=== PATIENT | male | born 1935 | race Caucasian/White ===

== ENCOUNTER → 2017-07-29 | Outpatient (CLI) | payer OTHER | LOC: BRMIMAGING 11:53 | PROVIDERS: ATTEND Family Medicine | DX: M25.571 Pain in right ankle and joints of right foot (principal); R22.9 Localized swelling, mass and lump, unspecified | CPT/HCPCS: 73600-PO ==

== ENCOUNTER 2018-12-26 18:30 | Inpatient (IN) | payer OTHER ==
[2018-12-26] MEDS ORDERED: NS 1,000 ML IV ONE (18:45)
--- NOTE | 2018-12-26 18:51 | EDPHY ---
H & P Stated Complaint: hematuria Time Seen by Provider: 12/26/18 18:36 HPI/ROS: CHIEF COMPLAINT: Hematuria HISTORY OF PRESENT ILLNESS: The patient is an 83-year-old man with a history of BPH status post green light procedure in 2013 who developed hematuria a few days ago and bladder retention yesterday. Yesterday he presented to his primary sent him to [facility] where had a Hargorve catheter placed and irrigated. Today he followed up with his urologist Dr. Shaw. Dr. Shaw exchanged the catheter for 3 way and irrigated his bladder and sent him here for CT scan. The CT scan revealed a large clot still remaining in the patient' s bladder. Dr. Shaw advised the patient come here to the ER to be admitted for continuous bladder irrigation. He has not had a fever. He has no abdominal pain. No vomiting. Severity: Moderate Modifying factors: None REVIEW OF SYSTEMS: Constitutional: denies: chills, fever, recent illness, recent injury EENTM: denies: blurred vision, double vision, nose congestion Respiratory: denies: cough, shortness of breath Cardiac: denies: chest pain, irregular heart rate, lightheadedness, palpitations Gastrointestinal/Abdominal: denies: abdominal pain, diarrhea, nausea, vomiting, blood streaked stools Genitourinary: See HPI Musculoskeletal: denies: joint pain, muscle pain Skin: denies: lesions, rash, jaundice, bruising Neurological: denies: headache, numbness, paresthesia, tingling, dizziness, weakness Hematologic/Lymphatic: denies: blood clots, easy bleeding, easy bruising Immunologic/allergic: denies: HIV/AIDS, transplant 10 systems reviewed and negative except as noted EXAM: GENERAL: Well-appearing, well-nourished and in no acute distress. HEAD: Atraumatic, normocephalic. EYES: Pupils equal round and reactive to light, extraocular movements intact, sclera anicteric, conjunctiva are normal. ENT: TMs normal, nares patent, oropharynx clear without exudates. Moist mucous membranes. NECK: Normal range of motion, supple without lymphadenopathy or JVD. LUNGS: Breath sounds clear to auscultation bilaterally and equal. No wheezes rales or rhonchi. HEART: Regular rate and rhythm without murmurs, rubs or gallops. ABDOMEN: Soft, nontender, normoactive bowel sounds. No guarding, no rebound. No masses appreciated. Hargrove catheter in place, 3 way BACK: No CVA tenderness, no spinal tenderness, step-offs or deformities EXTREMITIES: Normal range of motion, no pitting or edema. No clubbing or cyanosis. NEUROLOGICAL: Cranial nerves II through XII grossly intact. Normal speech, normal gait. 5/5 strength, normal movement in all extremities, normal sensation , normal reflexes PSYCH: Normal mood, normal affect. SKIN: Warm, dry, normal turgor, no visible rashes or lesions. Source: Patient Exam Limitations: No limitations - Personal History Current Tetanus/Diphtheria Vaccine: Yes - Medical/Surgical History Hx Asthma: No Hx Chronic Respiratory Disease: No Hx Diabetes: Yes Hx Cardiac Disease: No Hx Renal Disease: No Hx Cirrhosis: No Hx Alcoholism: No Other PMH: Pre-diabetic. BPH status post green light - Family History Significant Family History: No pertinent family hx - Social History Smoking Status: Never smoked Alcohol Use: None Constitutional: Initial Vital Signs Temperature (C) 36.5 C 12/26/18 18:35 Heart Rate 66 12/26/18 18:35 Respiratory Rate 18 12/26/18 18:35 Blood Pressure 139/76 H 12/26/18 18:35 O2 Sat (%) 95 12/26/18 18:35 O2 Delivery Mode Room Air Allergies/Adverse Reactions: No Known Allergies Allergy (Unverified 12/26/18 18:38) Home Medications: Medication Instructions Recorded Atorvastatin Calcium [Lipitor 20 20 mg PO HS 12/26/18 mg (*)] Lisinopril [Lisinopril] 10 mg PO HS 12/26/18 metFORMIN HCL [Metformin HCl] 250 mg PO HS 12/26/18 Medical Decision Making - Diagnostics Imaging Results: Imaging Impressions Pelvis CT 12/26/18 17:05 Impression: 1. Hargrove catheter in bladder with acute hemorrhage within the bladder measuring 7 x 4 x 5 cm. 2. Prostatomegaly. 3. Sigmoid diverticulosis without diverticulitis. Findings and recommendations given to Sonny Camara MD at 18:20 hour, 2018. Final report concurs with initial preliminary interpretation. Cosign: Dr. Aamir Nunez. Imaging: I viewed and interpreted images myself ED Course/Re-evaluation: I discussed the case with Dr. Cardoso from Internal Medicine who will admit for continuous bladder irrigation. Patient understands and agrees with this plan. Differential Diagnosis: Partial list of the Differential diagnosis considered include but were not limited to; hematuria, urinary retention and although unlikely based on the history and physical exam, I also considered infection, trauma. - Data Points Medications Given: Acetaminophen (Tylenol) 650 mg PO Q4HRS PRN PRN Reason: Pain, Mild/Fever, Can Take PO Stop: 06/24/19 19:31 Last Admin: 12/26/18 21:37 Dose: 650 mg Atorvastatin Calcium (Lipitor) 20 mg PO HS JESU Stop: 06/24/19 20:59 Last Admin: 12/26/18 21:37 Dose: 20 mg Sodium Chloride (Ns) 1,000 mls @ 100 mls/hr IV CONT JESU Stop: 12/29/18 05:44 Last Admin: 12/26/18 21:37 Dose: 1,000 mls Discontinued Medications Sodium Chloride (Ns) 1,000 mls @ 0 mls/hr IV EDNOW ONE; Wide Open PRN Reason: Protocol Stop: 12/26/18 18:46 Last Admin: 12/26/18 18:59 Dose: 1,000 mls Departure - Departure [facility] Acute Clinical Impression: Acute retention of urine Hematuria Qualifiers: Hematuria type: gross Qualified Code(s): R31.0 - Gross hematuria Condition: Fair
[2018-12-26 19:09] LABS: PLATELET COUNT 251 10^3/uL (150-400)
[2018-12-26 19:18] LABS: INR 0.97 (0.83-1.16); PROTIME(PATIENT) 13.1 SEC (12.0-15.0)
[2018-12-26] MEDS ORDERED: ONDANSETRON DISINTEGRATING 4 MG TAB PO PRN (19:32)
[2018-12-26] MEDS ORDERED: ONDANSETRON 4 MG/2 ML VIAL IVP PRN (19:32)
--- NOTE | 2018-12-26 19:41 | PDGENHP ---
History and Physical - Chief Complaint Hematuria - History of Present Illness HPI: This is a pleasant 83 y/o male with history of BPH s/p Green Light procedure performed in 2013 who developed hematuria few short days ago. Yesterday he had bladder retention. He was sent by his PCP to [facility] where a Addison catheter was placed and irrigated. Today he followed up with Dr. Camara and Dr. Camara exchanged his catheter for a 3-way catheter, irrigated it , and then sent him to CT scan. The scan revealed a large clot remains in the pt's bladder. The pt was advised to come to the ER for continuous bladder irrigation. Denies chest pain, palpitations, nausea, vomiting, fevers, chills, lightheadedness. He is being admitted for observation and treatment. Past Medical History: Pre-DM, HTN, HLD, BPH s/p green light procedure Past Surgical History: Ortho sx involving hands and shoulders Social: , lives in [place]. Denies tobacco or illicit drug use. Drinks ~2 alcohol beverages/day. History Information - Allergies/Home Medication List Allergies/Adverse Reactions: No Known Allergies Allergy (Unverified 12/26/18 18:38) Home Medications: Atorvastatin Calcium [Lipitor 20 mg (*)] 20 mg PO HS 12/26/18 [Last Taken ] Lisinopril [Lisinopril] 10 mg PO HS 12/26/18 [Last Taken 12/25/18] metFORMIN HCL [Metformin HCl] 250 mg PO HS 12/26/18 [Last Taken 12/25/18] I have personally reviewed and updated: family history, medical history, social history, surgical history Past Medical History: See HPI list - Surgical History Additional surgical history: See HPI list - Family History Positive for: non-pertinent - Social History Smoking Status: Never smoked Alcohol Use: Rarely Drug Use: None Review of Systems Review of Systems: ROS: 10pt was reviewed & negative except for what was stated in HPI & below Constitutional: Reports: no symptoms EENMT: Reports: no symptoms Cardiac: Reports: no symptoms Respiratory: Reports: no symptoms Gastrointestinal: Reports: no symptoms Genitourinary: Reports: hematuria Muscolosketal: Reports: no symptoms Skin: Reports: no symptoms Neurological: Reports: no symptoms Hematologic/Lymphatic: Reports: no symptoms Immunologic/Allergy: Reports: no symptoms Physical Exam Physical Exam: Lab data and imaging were reviewed. Case discussed with admitting physician, Dr. Aj Cardoso. Temp Pulse Resp BP Pulse Ox 36.5 C 66 18 139/76 H 95 12/26/18 18:35 12/26/18 18:35 12/26/18 18:35 12/26/18 18:35 12/26/18 18:35 Constitutional: no apparent distress, appears nourished, not in pain Eyes: PERRL, anicteric sclera, EOMI Ears, Nose, Mouth, Throat: moist mucous membranes, hearing normal, ears appear normal, no oral mucosal ulcers Cardiovascular: regular rate and rhythym, no murmur, rub, or gallop, No edema Peripheral Pulses: 2+: dorsalis-pedis (R) (Radial 2+), dorsalis-pedis (L) ( Radial 2+) Respiratory: no respiratory distress, no rales or rhonchi, clear to auscultation Gastrointestinal: normoactive bowel sounds, soft, non-tender abdomen, no palpable masses Genitourinary: addison in urethra (Hematuria in addison bag) Skin: warm, normal color, no rashes or abrasions, no fluctuance, no induration, No mottled Musculoskeletal: full muscle strength, no muscle tenderness, normal joint ROM, no joint effusions Neurologic: AAOx3, sensation intact bilaterally, CN II-XII Intact Psychiatric: interacting appropriately, not anxious, not encephalopathic, thought process linear Lymph, Heme, Immunologic: no cervical LAD, no supraclavicular LAD Lab Data & Imaging Review 12/26/18 19:00 12/26/18 19:00 WBC 9.00 10^3/uL (3.80-9.50) 12/26/18 19:00 RBC 4.10 10^6/uL (4.40-6.38) L 12/26/18 19:00 Hgb 12.4 g/dL (13.7-17.5) L 12/26/18 19:00 Hct 36.2 % (40.0-51.0) L 12/26/18 19:00 MCV 88.3 fL (81.5-99.8) 12/26/18 19:00 MCH 30.2 pg (27.9-34.1) 12/26/18 19:00 MCHC 34.3 g/dL (32.4-36.7) 12/26/18 19:00 RDW 13.1 % (11.5-15.2) 12/26/18 19:00 Plt Count 251 10^3/uL (150-400) 12/26/18 19:00 MPV 9.3 fL (8.7-11.7) 12/26/18 19:00 Neut % (Auto) 74.8 % (39.3-74.2) H 12/26/18 19:00 Lymph % (Auto) 15.7 % (15.0-45.0) 12/26/18 19:00 [place] % (Auto) 7.4 % (4.5-13.0) 12/26/18 19:00 Eos % (Auto) 1.6 % (0.6-7.6) 12/26/18 19:00 Baso % (Auto) 0.2 % (0.3-1.7) L 12/26/18 19:00 Nucleat RBC Rel Count 0.0 % (0.0-0.2) 12/26/18 19:00 Absolute Neuts (auto) 6.73 10^3/uL (1.70-6.50) H 12/26/18 19:00 Absolute Lymphs (auto) 1.41 10^3/uL (1.00-3.00) 12/26/18 19:00 Absolute Monos (auto) 0.67 10^3/uL (0.30-0.80) 12/26/18 19:00 Absolute Eos (auto) 0.14 10^3/uL (0.03-0.40) 12/26/18 19:00 Absolute Basos (auto) 0.02 10^3/uL (0.02-0.10) 12/26/18 19:00 Absolute Nucleated RBC 0.00 10^3/uL (0-0.01) 12/26/18 19:00 Immature Gran % 0.3 % (0.0-1.1) 12/26/18 19:00 Immature Gran # 0.03 10^3/uL (0.00-0.10) 12/26/18 19:00 PT 13.1 SEC (12.0-15.0) 12/26/18 19:00 INR 0.97 (0.83-1.16) 12/26/18 19:00 APTT 29.4 SEC (23.0-38.0) 12/26/18 19:00 Sodium 128 mEq/L (135-145) L 12/26/18 19:00 Potassium 4.3 mEq/L (3.5-5.2) 12/26/18 19:00 Chloride 98 mEq/L (97-110) 12/26/18 19:00 Carbon Dioxide 22 mEq/l (22-31) 12/26/18 19:00 Anion Gap 8 mEq/L (6-14) 12/26/18 19:00 BUN 26 mg/dL (7-23) H 12/26/18 19:00 Creatinine 1.2 mg/dL (0.7-1.3) 12/26/18 19:00 Estimated GFR 58 12/26/18 19:00 Glucose 119 mg/dL (70-100) H 12/26/18 19:00 Calcium 9.2 mg/dL (8.5-10.4) 12/26/18 19:00 Assessment & Plan Plan: 83 y/o male with history of hypertension, hyperlipidemia and pre-diabetes presenting with hematuria and bladder retention. Yesterday he received a addison catheter and today that was exchanged with a 3-way catheter, irrigated and found on imaging to continue to have a substantial clot. He is being admitted for continuous irrigation of his bladder. #Bladder retention with symptomatic hematuria: Hemodynamically stable. -Consulted urology. Dr. Camara aware of his admittance to the hospital and requesting continuous irrigation of his bladder. #Hyponatremia (128) with mild elevated BUN/Cr (26/1.2) -Checking urine sodium and osmolality for possible but unlikely SIADH -IVF x 3 bags and will recheck CBC tomorrow morning; he is most likely mild hypovolemic #Mild anemia: H/H 12.4/36.2. Suspect hematuria leading cause. -Continue to monitor and will recheck CBC tomorrow morning. #HTN: stable. Continue home medication. Diet: Regular VTE ppx: SCDs Code: DNR Dispo: Admit to obs
[2018-12-26] MEDS: NS 1,000 ML IV SCH (21:37)
[2018-12-26] MEDS: ACETAMINOPHEN 325 MG TAB PO PRN (21:37)
[2018-12-26] MEDS: ATORVASTATIN CALCIUM 20 MG TAB PO SCH (21:37)
--- NOTE | 2018-12-27 01:29 | GHP ---
[f rep st] HISTORY AND PHYSICAL DATE OF ADMISSION: 12/26/2018 CHIEF COMPLAINT: Hematuria. HISTORY OF PRESENT ILLNESS: The patient is a pleasant 83-year-old gentleman with a past medical hist ory of BPH, status post GreenLight laser therapy performed in 2013, who developed hematuria a few day s ago and subsequent urine retention yesterday. He was seen at [facility] and had a Hargrove simin ter placed, and today had followup with his urologist. He subsequently had a three-way catheter plac ed and obtained a CT scan which revealed the presence of a large clot within the bladder and was then recommended to come to the emergency room for admission for continuous bladder irrigation. For past medical history, past surgical history, medications, allergies, family history, social histo ry, and review of systems, please refer to admission H and P, also dictated by Ayana Mari. PHYSICAL EXAM: VITAL SIGNS: Temperature 36.5, blood pressure 139/76, heart rate 66, respirations 18 , satting 95% on room air. GENERAL: Patient resting comfortably in bed. No acute distress. HEART: Regular rate and rhythm. LUNGS: Normal respiratory effort. ABDOMEN: Nondistended. : Hargrove ca theter in place with blood-tinged urine in his Hargrove bag. SKIN: No paleness to his skin noted. LABORATORY DATA: White blood cell count 9, hemoglobin 12, platelets 251. Sodium 128, potassium 4.3, chloride 98, bicarb 22, BUN is 26, creatinine 1.2, glucose of 119. ASSESSMENT AND PLAN: Hematuria, uncertain trigger to his bleeding but he does have a large clot note d within the bladder. Continue continuous bladder irrigation as recommended by Urology. Hold any as pirin, heparin or Lovenox. Hyponatremia, possibly hypovolemia in nature. Would not exclude the possibility of syndrome of inapp ropriate antidiuretic hormone secretion. Obtain urine sodium and urine osmolality. Intravenous flui ds overnight and reassess tomorrow morning. Hypertension. Continue current lisinopril. Hyperlipidemia. Continue atorvastatin. Impaired fasting glucose. Continue metformin at 250 mg nightly. Deep venous thrombosis prophylaxis, compression devices. No heparin or Lovenox in light of hematuria . DISPOSITION: Admit under observation status for now. /[id number]/MODL
[2018-12-27 05:00] LABS: PLATELET COUNT 223 10^3/uL (150-400)
[2018-12-27] MEDS: NS 1,000 ML IV SCH ×2 (05:36→22:38)
--- NOTE | 2018-12-27 07:53 | SOAPPROG ---
SOAP Progress Note Assessment/Plan: Assessment: Acute retention of urine Acute continue addison Hematuria Acute may need evacuation of clot Plan: 12/27/18 07:52 Objective: Vital Signs Temp Pulse Resp BP Pulse Ox 36.5 C 57 L 16 111/69 93 12/27/18 07:17 12/27/18 07:17 12/27/18 07:17 12/27/18 07:17 12/27/18 07:17 Laboratory Results 12/27/18 04:15 12/27/18 04:15 12/26/18 12/27/18 12/28/18 05:59 05:59 05:59 Intake Total 765 Output Total 900 Balance -135 PT 13.1 SEC (12.0-15.0) 12/26/18 19:00 INR 0.97 (0.83-1.16) 12/26/18 19:00 ICD10 Worksheet Patient Problems: Problems Problem Status Onset Acute retention of urine Acute Hematuria Acute
--- NOTE | 2018-12-27 08:26 | GCON ---
[f rep st] CONSULTATION REASON FOR CONSULTATION: Gross hematuria and urinary retention. The patient is an 83-year-old gentleman who 2 days ago had sudden onset of gross hematuria. He state s the day before he took a couple aspirin. He had no other inciting event. He has a long history of BPH. His primary urologist is Dr. Tony Álvarez. In 2013, he had a laser vaporization of the prostate. The patient is otherwise a fairly healthy gentleman. He has no known heart disease and denies any p rior issues with general anesthesia. He was seen at the [facility] yesterday due to clot retention. He had a Hargrove catheter placed. He was seen in the office yesterday with Dr. Henri rollins nd had multiple clots irrigated from his bladder followed by a CT scan, which confirmed that he still had a bladder full for multiple large blood clots. He is currently on constant bladder irrigation, which is darker red despite running fairly fast. He is in no apparent distress. He was asleep when I arrived. It is currently 11:23 p.m. He denies any fevers, chills. He otherwise feels fine. No c hest pain, shortness of breath. He had no UTI symptoms prior to the event. LABORATORY VALUES: Hematocrit of 36.2, hemoglobin 12.4, white count 9.0. Creatinine 1.2. Sodium is somewhat low at 128. PHYSICAL EXAMINATION: GENERAL: No apparent distress. Comfortable. HEART: Regular. ABDOMEN: Prabhakar ign. No flank tenderness. He is morbidly obese. : He has normal male genitalia, uncircumcised, normal testicles. No suprapubic tenderness. He is on constant bladder irrigation, fully secure. Laboratory values were reviewed. CT scan was reviewed and his office chart was reviewed. ASSESSMENT AND PLAN: Patient with significant onset of gross hematuria with known prostatomegaly. Tayler linares had a CT scan a couple of years ago which revealed a 7 cm long prostate. He also had a recent pelv ic CT scan which showed a very large prostate. A CT scan approximately 2 years ago revealed no renal disease. He is most likely having prostatic bleeding, although bladder pathology could not be ruled out. We had a long discussion. He would prefer to have intervention. Discussed cystoscopy, clot e vacuation with possible bladder tumor resection if found, also possible fulguration or transurethral resection of the prostate due to prostatic bleeding. We discussed the risk o damage to the ureters, risk of damage to the bladder or kidney, risk of incontinence, risk of bleeding, risk of infection, r isks of anesthesia which include heart attack, stroke, and . We discussed those risks and he wi shes to proceed. He will be made n.p.o. after midnight. /[id number]/MODL
--- NOTE | 2018-12-27 09:20 | PDANEPAE ---
ANE History of Present Illness CYSTOSCOPY, EVACUATION OF BLADDER HEMATOMA ANE Past Medical History - Cardiovascular History Hx Hypertension: Yes Hx Arrhythmias: No Hx Chest Pain: No Hx Coronary Artery / Peripheral Vascular Disease: No Hx CHF / Valvular Disease: No Hx Palpitations: No Cardiovascular History Comment: HPL, EKG with first degree AVB, LBBB - Pulmonary History Hx COPD: No Hx Asthma/Reactive Airway Disease: No Hx Recent Upper Respiratory Infection: No Hx Oxygen in Use at Home: No Hx Sleep Apnea: Yes Pulmonary History Comment: hx sleep apnea no CPAP. chronic cough for about 4 years, unclear etiology - Neurologic History Hx Cerebrovascular Accident: No Hx Seizures: No Hx Dementia: No Neurologic History Comment: none - Endocrine History Hx Diabetes: Yes Hypothyroid: No Hyperthyroid: No Obesity: mild - Renal History Hx Renal Disorders: Yes Renal History Comment: enlarged prostate, increased urination&urgency, s/p TURP about 5 years ago - Liver History Hx Hepatic Disorders: No - Neurological & Psychiatric Hx Hx Neurological and Psychiatric Disorders: No - Cancer History Hx Cancer: Yes Cancer History Comment: melanoma - Congenital Disorder History Hx Congenital Disorders: No - GI History GERD: mild Hx Gastrointestinal Disorders: Yes Gastrointestinal History Comment: heartburn. normal colonoscopy 2011 - Other Health History Other Health History: bilateral cataract surg. [facility]. with anemia on admission - Chronic Pain History Chronic Pain: No - Surgical History Prior Surgeries: R shoulder repair 1999. melanoma scalp removed 1999. R hand surg 1969. vasectomy 1971 ANE Review of Systems Review of Systems: - Exercise capacity METS (RN): 4 METS ANE Patient History - Allergies Allergies/Adverse Reactions: No Known Allergies Allergy (Unverified 12/26/18 18:38) - Home Medications Home Medications: Atorvastatin Calcium [Lipitor 20 mg (*)] 20 mg PO HS 12/26/18 [Last Taken ] Lisinopril [Lisinopril] 10 mg PO HS 12/26/18 [Last Taken 12/25/18] metFORMIN HCL [Metformin HCl] 250 mg PO HS 12/26/18 [Last Taken 12/25/18] - Anes Hx Anes Hx: no prior problems - Smoking Hx Smoking Status: Never smoked Marijuana use: No - Alcohol Use Alcohol Use: None - Family Anes Hx Family Anes Hx: none Family Hx Anesthesia Complications: no ANE Labs/Vital Signs - Labs Result Diagrams: 12/27/18 04:15 12/27/18 04:15 - Vital Signs Blood Pressure: 111/69 Heart Rate: 57 Respiratory Rate: 16 O2 Sat (%): 93 Height: 177.8 cm Weight: 90.718 kg ANE Physical Exam - Airway Neck exam: FROM Mallampati Score: Class 2 Mouth exam: normal dental/mouth exam (upper caps) - Pulmonary Pulmonary: clear to auscultation - Cardiovascular Cardiovascular: regular rate and rhythym - ASA Status ASA Status: III ANE Anesthesia Plan Anesthesia Plan: GA w LMA
[2018-12-27] MEDS ORDERED: PROPOFOL 200 MG/20 ML VIAL ONE ×2 (09:44→11:09)
[2018-12-27] MEDS ORDERED: fentaNYL 100 MCG/2 ML INJ ONE (09:44)
[2018-12-27] MEDS ORDERED: CEFAZOLIN 2 GM/DEXTROSE/100 ML BAG IV ONE (10:17)
[2018-12-27] MEDS ORDERED: LIDOCAINE 2% JELLY 20 ML (UROJECT) ONE (10:18)
[2018-12-27] MEDS ORDERED: IOPAMIDOL (ISOVUE-M 300) 15 ML VIAL ONE (10:26)
[2018-12-27] MEDS ORDERED: RANITIDINE 50 MG/2 ML VIAL ONE (10:38)
[2018-12-27] MEDS ORDERED: OPIUM/BELLADONNA ALKALO SUPP PR ONE (10:39)
[2018-12-27] MEDS ORDERED: ceFAZolin 2 GM/DEXTROSE 100 ML IV ONE (11:00)
[2018-12-27] MEDS ORDERED: PHENYLEPHRINE HCL 100 MCG/ML SYR ONE (11:03)
[2018-12-27] MEDS ORDERED: ONDANSETRON 4 MG/2 ML VIAL ONE (11:27)
[2018-12-27] MEDS ORDERED: ONDANSETRON 4 MG/2 ML VIAL IVP PRN (11:30)
[2018-12-27] MEDS ORDERED: HYDROmorphONE/DILAUDID 2 MG/ML INJ IVP PRN (11:30)
[2018-12-27] MEDS ORDERED: NALOXONE HCL 0.4 MG/ML INJ IVP PRN (11:30)
[2018-12-27] MEDS ORDERED: fentaNYL 100 MCG/2 ML INJ IVP PRN (11:30)
--- NOTE | 2018-12-27 11:58 | POSTANESTH ---
Post Anesthetic Evaluation Cardiovascular Status: Similar to Pre-Op Cond Respiratory Status: Similar to Pre-op Cond. Level of Consciousness/Mental Status: Can Participate in Eval Pain Control: Adequate, Prn Tx Ordered Nausea/Vomiting Control: Adequate, Prn Tx Ordered Complications Possibly Related to Anesthesia: None Noted
[2018-12-27] MEDS ORDERED: OPIUM/BELLADONNA ALKALO SUPP PR PRN (12:51)
--- NOTE | 2018-12-27 13:46 | HOSPPROG ---
Hospitalist Progress Note Assessment/Plan: 83 y/o male with history of hypertension, hyperlipidemia and pre-diabetes admitted with gross hematuria requiring CBI #Hematuria in setting of BPH with bladder hemorrhage resulting in ZAYAS requiring [address] addison with CBI - S/P TURP and clot evacuation, POD #0 -cont addison / CBI per urology #Hyponatremia - pina hypovolemic, improved with IVF's -follow #ABLA: 2/2 hematuria -follow, no indication for transfusion at this time -rpt h&h this afternoon stable #HTN: holding lisinopril, BP's currently nl -resume as clinically indicated #Hyperlipidemia - statin Diet: Regular VTE ppx: SCDs, defer pharm with bleeding Code: DNR Dispo: change to inpt given operative intervention today Subjective: Pt feels ok. No pain. No CP, SOB. Addison draining clearish urine. Objective: Vital Signs Temp Pulse Resp BP Pulse Ox 36.5 C 52 L 16 134/69 H 95 12/27/18 12:54 12/27/18 12:54 12/27/18 12:54 12/27/18 12:54 12/27/18 12:54 Laboratory Results 12/27/18 04:15 12/27/18 04:15 12/26/18 12/27/18 12/28/18 05:59 05:59 05:59 Intake Total 765 400 Output Total 900 5 Balance -135 395 PT 13.1 SEC (12.0-15.0) 12/26/18 19:00 INR 0.97 (0.83-1.16) 12/26/18 19:00 - Physical Exam Constitutional: no apparent distress Eyes: PERRL Ears, Nose, Mouth, Throat: moist mucous membranes Cardiovascular: regular rate and rhythym Respiratory: no respiratory distress, clear to auscultation Gastrointestinal: normoactive bowel sounds, soft, non-tender abdomen Skin: warm Musculoskeletal: full muscle strength Neurologic: AAOx3 Psychiatric: interacting appropriately ICD10 Worksheet Patient Problems: Problems Problem Status Onset Acute retention of urine Acute Hematuria Acute
--- NOTE | 2018-12-27 13:50 | ASMTCMCOM ---
CM Note CM Note Notes: Pt was admitted with urinary retention. He is s/p cystoscopy with clot evacuation. He lives in [place] and has a daughter who is local and a girlfriend. CM will follow for any d/c needs. D/C plan: TBD Date Signed: 12/27/2018 01:49 PM Electronically Signed By:JOSETTE Kenny
--- NOTE | 2018-12-27 15:14 | GOP ---
[f rep st] OPERATIVE REPORT DATE OF OPERATION: 12/27/2018 SURGEON: Bacilio Álvarez MD COIL ASSEMBLER: None. ANESTHESIA: General. PREOPERATIVE DIAGNOSIS: Gross hematuria, clot retention, BPH, benign prostatic hypertrophy. POSTOPERATIVE DIAGNOSIS: PROCEDURE PERFORMED: FINDINGS: SPECIMENS: Prostatic tissue. ESTIMATED BLOOD LOSS: Minimal. DESCRIPTION OF PROCEDURE: After informed consent had been obtained, patient was prepped and draped i n normal sterile fashion. He was placed in a lithotomy position. A 20-Citizen [place] resectoscope with a Re sectosheath was introduced with the obturator. Multiple large clots were irrigated out of the bladde r with a 60 cc Chante syringe. After most of the clots were removed, cystoscopy was performed. The ureteral orifices were identified. No bladder tumors were noted, and there were still more clots, an d more clots were irrigated out using the Chante syringe. The proximal prostate was very friable and actively bleeding, left greater than right. The friable tissue was resected using a bipolar loop. A fter all the friable tissue was resected, hemostasis was obtained with cautery in a circumferential m annelise. The unharmed by the procedure. After all the clots had been removed and the prost atic chips had been removed, and there was good hemostasis, I placed a 24-Citizen [place] Hargrove catheter set t o constant bladder irrigation with mild traction. Also, he was given a B and O suppository. He will be discharged home on a prescription of Proscar daily long-term use, Pyridium 200 mg q.8h p.r.n. for short-term use, Keflex 500 mg p.o. twice daily for 5 days, and Lortab 5 mg 1 p.o. q.6 p.o. p.r.n., # 20. He will follow up with me. He states he would prefer to stay in [place] for a followup visit, b ut my address and information was given to him. I recommend he be discharged home on a Hargrove cathete r and follow up in the office to have the Hargrove catheter removed. I suspect he will void fine since his obstructing tissue was removed. We discussed preventing constipation and to let us know if he vera s any significant return of bleeding or signs of infection such as fever, chills, or change in mental status. COMPLICATIONS: None. DRAINS: A 24-Citizen Of [place] Hargrove catheter. /[id number]/MODL
--- NOTE | 2018-12-27 15:26 | PDMN ---
Medical Necessity Medical necessity: [facility] S970 TURP, A-1 day: 83 yo presents w/ hematuria and bladder retention. Scans revealed large clot in bladder. Initially OBS for workup, uro consult. [address] way addison placed w/ CBI and Pt taken to OR for TURP and clot evacuation. Cont addison w/ CBI post op. Remains on IVF. Pt requires additional MN for monitoring and tx of the above. Hx pre DM, HTN, HLD, BPH w/ green light procedure 2013. Change to IP status 12/27/18@1350 per MD order
[2018-12-27] MEDS: ATORVASTATIN CALCIUM 20 MG TAB PO SCH (20:26)
[2018-12-27] MEDS: ACETAMINOPHEN 325 MG TAB PO PRN (22:38)
[2018-12-28] MEDS ORDERED: PHENAZOPYRIDINE HCL 200 MG TAB PO PRN (06:22)
[2018-12-28 07:18] VITALS: BP 121/65
[2018-12-28] MEDS ORDERED: FINASTERIDE 5 MG TAB PO SCH (09:00)
[2018-12-28] MEDS ORDERED: CEPHALEXIN 500 MG CAP PO SCH (09:00)
--- NOTE | 2018-12-28 10:40 | ASMTDCNOTE ---
Case Management Discharge Discharge Order Complete? Answers: Yes Patient to Obtain Answers: via Family Medications Transportation Arranged Answers: Family/Friends Family Notified Answers: Yes Discharge Comments Notes: Medically cleared for discharge to home. No current needs. CM available should needs arise. Date Signed: 12/28/2018 10:39 AM Electronically Signed By:Tori Gonzalez RN
--- NOTE | 2018-12-28 10:40 | ASMTLACE ---
LACE Length of stay for Answers: Less than 1 day current admission Comorbidities - select Answers: Other Notes: HTN, BPH all that apply # of Emergency department Answers: 1-2 visits in the last 6 months Score: 2 Date Signed: 12/28/2018 10:39 AM Electronically Signed By:Tori Gonzalez RN
--- NOTE | 2018-12-28 16:38 | GDS ---
[f rep st] DISCHARGE SUMMARY DISCHARGE DIAGNOSES: 1. Hematuria, resolved. 2. Benign prostatic hypertrophy with bladder hemorrhage resulting in bladder outlet obstruction. 3. Hyponatremia, improved. 4. Acute blood loss anemia, stable. 5. Hypertension. 6. Hyperlipidemia. CONSULTANTS: Dr. Bacilio Álvarez, Urology. PROCEDURES: Cystoscopy with clot extraction, and resection and cauterization of friable prostate tis harris resulting in hemostasis on December 27, 2018. HISTORY OF DETAILS: Please see History and Physical dated December 26, 2018. In brief, Tyler is a n 83-year-old male with history of benign prostatic hypertrophy status post GreenLight procedure in 2 014, who presented to the emergency department with hematuria and urinary retention. He had previous ly been seen at [facility] where a Hargrove catheter was placed, and he received some irrigation. He followed up with Dr. Álvarez where his catheter was changed for a three-way catheter for further blad oliver irrigation. He underwent CT scan, which revealed a large clot in the bladder. He was admitted f or further management. HOSPITAL COURSE: Patient was admitted to the med/surg unit. He underwent continuous bladder irrigat ion. Was ultimately taken to the operating room for clot resection and management of prostatic bleed ing. His urine is draining more clear this morning. He did drop his hemoglobin from 12.4-10.8, thou gh this remained stable on the day of discharge to 10.7. In addition, he has been hemodynamically st able. I discussed the case with Urology on the day of discharge. He will be discharged with his Fol ey in place with close outpatient Urology follow up with his primary urologist, Dr. Álvarez. DISPOSITION: Patient is discharged home in stable condition. FOLLOWUP: Dr. Tony Camara, Urology. DISCHARGE MEDICATIONS: Please see EMcube completed outpatient medication list. New medications on discharge include; Keflex 500 mg p.o. twice daily, #10, no refills, Proscar 5 mg p.o. daily, and Pyr idium 200 mg p.o. three times daily p.r.n., as well as, Lortab 5 mg p.o. q.6 hours p.r.n. All these scripts were provided by Dr. Álvarez. He will continue all other outpatient medications. Please see pr escribed. /[id number]/MODL
--- NOTE | 2018-12-29 10:01 | CPEKG ---
Test Reason : OPEN Blood Pressure : / mmHG Vent. Rate : 053 BPM Atrial Rate : 053 BPM P-R Int : 270 ms QRS Dur : 122 ms QT Int : 457 ms P-R-T Axes : -02 -26 017 degrees QTc Int : 430 ms Sinus rhythm Prolonged OK interval Nonspecific intraventricular conduction delay Confirmed by Moises Galaviz ([id number]) on 12/29/2018 10:00:41 AM Referred By: Aj Cardoso Confirmed By:Moises Galaviz
== END 2018-12-28 13:18 | disposition home or self-care (01) | DRG 713 ==
LOC: EDSTATUS 18:30 → F1N 20:00 → OBSVTOIN 12-27 13:50
PROVIDERS: ADMIT Internal Medicine; ATTEND Internal Medicine
DX: N40.1 Benign prostatic hyperplasia with lower urinary tract symptoms (principal); D62 Acute posthemorrhagic anemia; E87.1 Hypo-osmolality and hyponatremia; R31.0 Gross hematuria; R33.8 Other retention of urine; I10 Essential (primary) hypertension; E78.5 Hyperlipidemia, unspecified; E86.9 Volume depletion, unspecified; R73.01 Impaired fasting glucose; Z79.84 Long term (current) use of oral hypoglycemic drugs; Z66 Do not resuscitate
CPT/HCPCS: G0378; J0690; J2370; J2405; J2704; J2780; J3010; Q9967

== ENCOUNTER → 2019-02-27 | Outpatient (CLI) | payer OTHER | LOC: BRMIMAGING 12:57 | PROVIDERS: ATTEND Family Medicine | DX: R05 Cough (principal) | CPT/HCPCS: 71046-PO ==